=== PATIENT | male | born 2000 | race Caucasian/White ===

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

== ENCOUNTER 2022-12-08 11:01 | Emergency (ER) | payer MEDICAID, OTHER ==
[~2022-12-08] VITALS: Ht 177.8 cm; Wt 100.6 kg
[~2022-12-08 11:01] MED LIST changes: -LAMO200T PO; +LAMO200T9 PO
[2022-12-08 11:04] VITALS: BP 115/70; PULSE 85; RESP 18; TEMP 98.8; O2SAT 97
== END 2022-12-08 12:42 | disposition home or self-care (01) ==
LOC: ER 11:01
DX: S00.83XA Contusion of other part of head, initial encounter (principal); R56.9 Unspecified convulsions; X58.XXXA Exposure to other specified factors, initial encounter; Y93.89 Activity, other specified; Y92.89 Other specified places as the place of occurrence of the external cause; Y99.8 Other external cause status
CPT/HCPCS: 99281

== ENCOUNTER 2023-05-08 05:01 | Emergency (ER) | payer MEDICAID, OTHER ==
[~2023-05-08] VITALS: Ht 188 cm; Wt 86.0 kg
[2023-05-08 05:10] VITALS: O2SAT 98
[2023-05-08] MEDS ORDERED: LIDOCAINE HCL/PF 1% 10 MG/ML 5ML VIAL INFIL ONE (06:00)
[2023-05-08 06:30] LABS: BASOPHILS % 0.6 % (0.0-2.0); EOSINOPHILS % 1.8 % (0.0-5.0); HEMATOCRIT. 44.9 % (42.0-52.0); HEMOGLOBIN. 15.7 g/dL (14.0-18.0); LYMPHOCYTES % 17.5 % (20.0-50.0); MEAN CORPUSCULAR HEMOGLOBIN 32.3 pg (28.0-32.0); MEAN CORPUSCULAR HGB CONC 34.9 g/dL (31.0-37.0); MEAN CORPUSCULAR VOLUME 92.6 fL (80.0-94.0); MEAN PLATELET VOLUME 6.7 fl (7.4-10.4); MONOCYTES % 7.8 % (2.0-8.0); NEUTROPHILS % 72.3 % (40.0-76.0); PLATELET 323 x1000/uL (130-400); RED BLOOD CELL COUNT 4.85 mill/uL (4.7-6.1); WHITE BLOOD COUNT 8.9 x1000/uL (4.5-11.0)
[2023-05-08 07:05] LABS: ALANINE AMINOTRANSFERASE 31 IU/L (10-49); ALBUMIN 4.3 g/dL (3.2-4.8); ASPARTATE AMINOTRANSFERASE 21 IU/L (<34); BILIRUBIN TOTAL 0.4 mg/dL (0.1-1.0); CARBON DIOXIDE 26 mEq/L (21-32); CHLORIDE 107 mEq/L (98-107); CREATININE 0.8 mg/dL (0.6-1.3); GLUCOSE 106 mg/dL (70-105); PROTEIN TOTAL 6.7 g/dL (6.0-8.3); SODIUM 140 mEq/L (136-145); UREA NITROGEN BLOOD 7 mg/dL (9-23)
[2023-05-08 07:09] LABS: ETHANOL BLOOD < 10 mg/dL (<10)
[2023-05-08] MEDS ORDERED: LAMOTRIGINE 100MG TABLET PO STA (07:14)
[2023-05-08] MEDS ORDERED: NON FORMULARY PATIENT HOME MED XX SCH (07:45)
[2023-05-08 08:09] VITALS: BP 103/49; PULSE 80; RESP 12; TEMP 98.4
== END 2023-05-08 08:22 | disposition home or self-care (01) ==
LOC: ER 05:01
DX: S01.01XA Laceration without foreign body of scalp, initial encounter (principal); G40.89 Other seizures; X58.XXXA Exposure to other specified factors, initial encounter; Y93.89 Activity, other specified; Y92.89 Other specified places as the place of occurrence of the external cause; Y99.8 Other external cause status
CPT/HCPCS: 80053; 80320; 85025; 36415; 70450; 12001; 99284; J3490; Z7610; G0480

== ENCOUNTER 2023-05-18 09:28 | Emergency (ER) | payer MEDICAID ==
[~2023-05-18] VITALS: Ht 175.3 cm; Wt 100.0 kg
[2023-05-18 09:36] VITALS: O2SAT 98
[2023-05-18 10:51] VITALS: BP 125/70; PULSE 88; RESP 18; TEMP 98.2
== END 2023-05-18 10:50 | disposition home or self-care (01) ==
LOC: ER 09:28
DX: S01.01XD Laceration without foreign body of scalp, subsequent encounter (principal); R56.9 Unspecified convulsions; X58.XXXD Exposure to other specified factors, subsequent encounter
CPT/HCPCS: 99281

== ENCOUNTER 2023-05-25 17:59 | Emergency (ER) | payer MEDICAID ==
[~2023-05-25] VITALS: Ht 175.3 cm; Wt 111.0 kg
[2023-05-25 18:11] VITALS: O2SAT 97
[2023-05-25] MEDS: MAGNESIUM/ALUMINUM HYDROXIDE/SIMETHICONE 30ML UDC PO NR (19:00)
[2023-05-25] MEDS: FAMOTIDINE 20MG TABLET PO NR (19:00)
[2023-05-25 20:32] VITALS: BP 131/71; PULSE 88; RESP 15; TEMP 97.3
== END 2023-05-25 20:34 | disposition home or self-care (01) ==
LOC: ER 17:59
DX: R07.89 Other chest pain (principal); R56.9 Unspecified convulsions
CPT/HCPCS: 71045; 93005; 99283